=== PATIENT | male | born 1970 | race Caucasian/White ===

== ENCOUNTER 2018-09-30 21:58 | Emergency (ER) | payer OTHER ==
[~2018-09-30] VITALS: Ht 172.7 cm; Wt 99.8 kg
[~2018-09-30 21:58] MED LIST: ACYC400 PO; CEPH500 PO; MED FOR RESTLESS LEG; PARO10 PO
[2018-09-30] MEDS ORDERED: ERYT1OIN RIGHTEYE (23:52)
== END 2018-10-01 00:02 | disposition home or self-care (01) ==
LOC: ER 21:58
DX: T15.01XA Foreign body in cornea, right eye, initial encounter (principal); W22.8XXA Striking against or struck by other objects, initial encounter; Z88.5 Allergy status to narcotic agent; Z87.891 Personal history of nicotine dependence
CPT/HCPCS: 65220; 99283-25; A9270

== ENCOUNTER 2019-11-06 09:44 | Day surgery (SDC) | payer BC, OTHER ==
[~2019-11-06] VITALS: Ht 172.7 cm; Wt 95.3 kg
[~2019-11-06 09:44] MED LIST changes: +ERYT1OIN RIGHTEYE
--- NOTE | 2019-11-06 10:22 | NUR ---
11/06/19 1022 Jeremy pulido FIRST IV IN RIGHT HAND MISSED SECOND IV IN RIGHT HAND WORKED
== END 2019-11-06 11:47 | disposition home or self-care (01) ==
LOC: ORSCSDS 09:44
PROVIDERS: Student in an Organized Health Care Education/Training Program
PROC: 0DBK8ZX Excision of Ascending Colon, Via Natural or Artificial Opening Endoscopic, Diagnostic (ICD-10-PCS; principal; 2019-11-06 11:00)
DX: Z12.11 Encounter for screening for malignant neoplasm of colon (principal); D12.2 Benign neoplasm of ascending colon; F17.220 Nicotine dependence, chewing tobacco, uncomplicated
CPT/HCPCS: 88305; J2250; J2704; J7120

== ENCOUNTER 2020-12-10 20:34 | Emergency (ER) | payer OTHER, BC ==
[~2020-12-10] VITALS: Ht 172.7 cm; Wt 99.8 kg
[2020-12-10] MEDS ORDERED: KLONOPIN1 MG PO (20:40)
[2020-12-10] MEDS ORDERED: PAXIL40 M1 PO (20:40)
[2020-12-10] MEDS ORDERED: DOXAZOSIN MESYLA8 M2 PO (20:40)
[2020-12-10] MEDS ORDERED: NAPROXEN SODIU PO (20:40)
[2020-12-10] MEDS ORDERED: Oxybutynin Chlo10 MG PO (20:40)
== END 2020-12-10 21:55 | disposition home or self-care (01) ==
LOC: ER 20:34
DX: S61.241A Puncture wound with foreign body of left index finger without damage to nail, initial encounter (principal); F32.9 Major depressive disorder, single episode, unspecified; Z88.5 Allergy status to narcotic agent; Z79.899 Other long term (current) drug therapy; W45.8XXA Other foreign body or object entering through skin, initial encounter
CPT/HCPCS: 73140; 99283-25

== ENCOUNTER → 2023-01-26 | Outpatient (CLI) | payer BC ==
[~2023-01-26] MED LIST changes: +DOXAZOSIN MESYLA8 M2 PO; +KLONOPIN1 MG PO; +NAPROXEN SODIU PO; +Oxybutynin Chlo10 MG PO; +PAXIL40 M1 PO
== END ==
LOC: LAB SHORT 10:09 → LAB 10:09
DX: M79.89 Other specified soft tissue disorders (principal)
CPT/HCPCS: 84550

== ENCOUNTER 2024-10-22 08:16 | Emergency (ER) | payer OTHER ==
[~2024-10-22] VITALS: Ht 172.7 cm; Wt 90.7 kg
[2024-10-22] MEDS ORDERED: OxyCODONE 5 mg/Acetamin 325 mg TABLET PO ONE (09:05)
[2024-10-22 11:41] VITALS: BP 120/83
[2024-10-22] MEDS ORDERED: OXYC5 PO (11:42)
== END 2024-10-22 12:01 | disposition home or self-care (01) ==
LOC: ER 08:16
DX: M25.462 Effusion, left knee (principal); M79.89 Other specified soft tissue disorders; Z88.5 Allergy status to narcotic agent
CPT/HCPCS: 73562-LT; 93971; 99284-25; A9270